=== PATIENT | female | born 1960 | race African-American/Black ===

== ENCOUNTER 2019-11-28 11:30 | Outpatient (CLI) | payer BC, SELFPAY ==
--- NOTE | ~2019-11-28 | US_ITS ---
US venous doppler [facility] DATE: 11/28/2019 12:22 INDICATION: Bilateral calf pain and lower extremity swelling TECHNIQUE: Real-time and color flow imaging and Doppler analysis of the lower extremity veins COMPARISON: None FINDINGS: The greater saphenous veins are patent. There is spontaneous and phasic flow and normal aug mentation and color flow signal and normal compression of the deep veins of both lower extremities. IMPRESSION: No evidence of deep venous thrombosis of the lower extremities Reviewed, dictated and finalized at Location A. Reviewed, dictated and finalized at location B.
== END 2019-11-28 11:31 | disposition home or self-care (01) ==
PROVIDERS: PCP Family Medicine; Visit Provider Family Medicine
DX: M79.89 Other specified soft tissue disorders (principal); M79.662 Pain in left lower leg; M79.661 Pain in right lower leg
CPT/HCPCS: 93970

== ENCOUNTER 2020-02-12 17:15 | Outpatient (CLI) | payer BC, SELFPAY ==
--- NOTE | ~2020-02-12 | CT_ITS ---
EXAMINATION: CT pelvis w con DATE: 02/12/2020 17:50 INDICATION: Bilateral groin pain TECHNIQUE: Computed tomography (CT) of the pelvis was performed with 100 mL Omnipaque-350 intravenous contrast. The dose-length product was 736.58 mGy-cm. COMPARISON: CT abdomen and pelvis dated 04/12/2009 FINDINGS: There is moderate colonic diverticulosis along the sigmoid colon without adjacent inflammatory change to suggest diverticulitis. Visualized portion of the small bowel are normal. Fibroid uterus. Bladder and bilateral adnexa are unremarkable. Small amount of fluid in the right side of the vaginal vault. Small fat-containing umbilical hernia. No inguinal or lower abdominal/pelvic ventral hernias. No pat hologically enlarged pelvic or inguinal lymphadenopathy. Severe bilateral facet osteoarthritis at L4- L5 and L5-S1. Mild bilateral hip and sacroiliac osteoarthritis. IMPRESSION: 1. No inguinal hernias or acute intrapelvic process. 2. Sigmoid diverticulosis. Reviewed, dictated and finalized at location A.
[2020-02-12 17:51] LABS: Estimated Glomerular Filt Rate > 60
== END 2020-02-12 17:16 | disposition home or self-care (01) ==
PROVIDERS: PCP Family Medicine; Visit Provider Physician Assistant
DX: K57.30 Diverticulosis of large intestine without perforation or abscess without bleeding (principal)
CPT/HCPCS: 36415; 72193; Q9967

== ENCOUNTER 2020-02-13 11:23 | Outpatient (CLI) | payer BC, SELFPAY ==
[2020-02-13 11:58] LABS: Basophils Percent Auto 0.3 % (0.2-1.2); Eosinophils Absolute Auto 0.4 K/mm3 (0-0.3); Eosinophils Percent Auto 5.9 % (0-4.4); Hematocrit 36.1 % (37.0-47.0); Hemoglobin 12.5 g/dL (12.0-15.0); Immature Granulocyte Absolute 0.02 K/mm3 (0.00-0.031); Immature Granulocyte Percent A 0.3 % (0-0.5); Lymphocytes Absolute Auto 1.58 K/mm3 (0.9-3.2); Lymphocytes Percent Auto 26.7 % (18.3-44.2); Mean Corpuscular HGB Conc 34.6 g/dl (32-36); Mean Corpuscular Hemoglobin 25.5 pg (26-34); Mean Corpuscular Volume 73.7 fl (80-100); Mean Platelet Volume 10.6 fl (7.4-10.4); Monocytes Absolute Auto 0.4 K/mm3 (0.1-0.6); Monocytes Percent Auto 6.9 % (2.6-8.5); Neutrophils Absolute Auto 3.5 K/mm3 (1.3-6.7); Neutrophils Percent Auto 59.9 % (45.5-73.1); Platelet Count Result 393 k/mm3 (150-375); Red Cell Distribution Width 14.7 % (11.5-14.5); White Blood Count 5.9 K/mm3 (4.5-10.0)
[2020-02-13 12:10] LABS: Alanine Aminotransferase 17 U/L (4-35); Albumin Level 4.2 g/dL (3.5-5.1); Alkaline Phosphatase 94 U/L (38-126); Aspartate Amino Transferase 22 U/L (14-36); Bilirubin,Total 1.2 mg/dL (0.2-1.3); Blood Urea Nitrogen 9 mg/dL (7-17); Calcium 8.9 mg/dL (8.4-10.2); Carbon Dioxide 30 mmol/L (22-30); Chloride 101 mmol/L (98-107); Creatine Kinase 65 U/L (30-135); Estimated Glomerular Filt Rate > 60; Glucose 88 mg/dL (65-105); Potassium 3.7 mmol/L (3.4-5.0); Sodium 137 mmol/L (137-145)
== END 2020-02-13 11:24 | disposition home or self-care (01) ==
PROVIDERS: PCP Family Medicine; Visit Provider Physician Assistant
DX: M79.10 Myalgia, unspecified site (principal); R10.2 Pelvic and perineal pain
CPT/HCPCS: 36415; 80053; 82550; 85025

== ENCOUNTER 2021-06-09 14:19 | Outpatient (CLI) | payer BC, SELFPAY ==
--- NOTE | ~2021-06-09 | MMUS_ITS ---
EXAMINATION: MM diagnostic jill BI w jaja, US breast LT limited HISTORY: Palpable left breast lump TECHNIQUE: Additional 3-D tomosynthesis images of the breasts were performed and synthetic 2-D images were generated. CAD analysis was submitted and interpreted. High resolution Limited left breast ultr asound was performed. COMPARISON: Comparison to multiple prior studies sequentially, with oldest reviewed study dated 02/18. BREAST PARENCHYMAL COMPOSITION: Breast composed of scattered areas of fibroglandular density. FINDINGS: MAMMOGRAPHIC FINDINGS: There is a new complex appearing mass with irregular margins in the upper outer quadrant of the left breast. There is an adjacent mass posterior to the dominant mass adjacent to the chest wall. There ar e new enlarged left axillary lymph nodes. The largest measurement measures approximately 3.5 cm and c ontains internal punctate calcifications. ULTRASOUND: Limited left breast ultrasound: At 2:00 in the area of palpable concern, 3 cm from the nipple there i s an irregular shaped hypoechoic mass within urination, mixed posterior attenuation measuring 2.7 x 2 .7 x 2.6 cm. There is internal vascularity. In the right axilla there is an irregular shaped hypoecho ic mass measuring 9 x 6 x 6 mm with mixed posterior attenuation and internal vascularity. At 12:00, 2 cm from the nipple, there is a 1.8 cm cyst. IMPRESSION: 1. Multiple left breast masses, largest dominant mass with some irregular spiculated margins, at 2:00 , 3 cm from the nipple measuring 2.7 cm. 2. Ultrasound-guided left breast biopsies recommended. BI-RADS category 5, highly suggestive of malignancy. Reviewed, dictated and finalized at location A. IMPRESSION: 1. Multiple left breast masses, largest dominant mass with some irregular spicu lated margins, at 2:00, 3 cm from the nipple measuring 2.7 cm. 2. Ultrasound-guided left breast biopsies recommended. BI-RADS category 5, highly suggestive of malignancy.
== END 2021-06-09 14:20 | disposition home or self-care (01) ==
PROVIDERS: PCP Family Medicine; Referring Provider Nurse Practitioner Family; Visit Provider Family Medicine
DX: N63.21 Unspecified lump in the left breast, upper outer quadrant (principal)
CPT/HCPCS: 76642; 77062; 77066; G0279

== ENCOUNTER 2021-06-13 13:02 | Outpatient (CLI) | payer BC, SELFPAY ==
--- NOTE | ~2021-06-13 | MMUS_ITS ---
US breast biopsy LT w image, MM post biopsy invasive LT EXAMINATION: US GUIDED NEEDLE BIOPSY WITH VAC UUM ASSISTANCE DATE: 06/13/2021 15:00 CDT INDICATION: Left breast mass seen at 2:00, 3 cm from the nipple Ultrasound-guided core biopsy is req uested to evaluate for malignancy. TECHNIQUE AND FINDINGS: The risks and potential benefits of the procedure were discussed with the patient, and written inform ed consent was obtained. After sterile preparation of the left breast, 1% lidocaine was utilized for local anesthesia. 1% lidocaine with epinephrine was used for deep anesthesia. A 10G vacuum-assisted biopsy gun needle was advanced through to the outer edge of the region of inter est from a superior approach utilizing sonographic guidance. A total of 5 tissue core samples were o btained through the lesion. An Inrad tissue marker clip was then placed at the biopsy site. Hemostas is was achieved. The patient tolerated procedure well and there was no evidence of immediate complication. The patien t was given verbal instructions partly is from the department. Left breast mammograms to document ti ssue marker clip placement. The tissue samples were submitted to surgical pathology for histologic an alysis. IMPRESSION: 1. Successful ultrasound-guided vacuum-assisted biopsy of left breast mass with tissue marker placem ent. Please refer to pathology report for histologic analysis. Patient experienced bleeding at the ti me of the biopsy. Additional mass posterior to the dominant mass was not biopsied at this time due to bleeding. Reviewed, dictated and finalized at location A. IMPRESSION: 1. Successful ultrasound-guided vacuum-assisted biopsy of left breast mass wit h tissue marker placement. Please refer to pathology report for histologic anal ysis. Patient experienced bleeding at the time of the biopsy. Additional mass p osterior to the dominant mass was not biopsied at this time due to bleeding.
== END 2021-06-13 13:03 | disposition home or self-care (01) ==
LOC: ANHIMG 13:04
PROVIDERS: PCP Family Medicine; Visit Provider Nurse Practitioner Family
DX: N63.20 Unspecified lump in the left breast, unspecified quadrant (principal); C50.412 Malignant neoplasm of upper-outer quadrant of left female breast
CPT/HCPCS: 19083; 88305; 88342; 88360; A4648

== ENCOUNTER 2021-07-22 12:58 | Outpatient (CLI) | payer BC, SELFPAY ==
--- NOTE | 2021-07-22 | ECHO_ITS ---
Patient Info Name: Lis Whitlock Age: 60 years : 1960 Gender: Female Ht: 63 in Wt: 203 lbs BSA: 2.07 m2 HR: 89 bpm BP: 151 / 81 mmHg Heart Rhythm: Sinus Rhythm Exam Date: 07/22/2021 1:59 PM Exam Location: [facility] Pulmonary Patient Status: Outpatient Admit Date: 07/22/2021 Staff Ordering Physician: Vernon Spencer MD Ophthalmic Technician Apprentice: Shala Borja RDCS Attending Provider: Vernon Spencer MD Referring Physician: Johanna BANKS; Exam Type: CA echo doppler color flow Study Info Indications - MALIGNANT NEOPLASM OF LEFT FEMALE BREAST Complete two-dimensional, color flow and Doppler transthoracic echocardiogram is performed. Summary 1. Complete two-dimensional, color flow and Doppler transthoracic echocardiogram is performed. 2. Left ventricular chamber dimension is normal. 3. Left ventricular systolic function is normal, estimated at 65-70%. 4. There is mildly increased left ventricular wall thickness. 5. The left ventricular diastolic function is grade I diastolic dysfunction. 6. E/e' 13 is mildly elevated. 7. Left atrial chamber dimension is mildly enlarged. 8. There is trace mitral valve regurgitation. 9. There is trace tricuspid valve regurgitation. 10. No pulmonary hypertension, estimated pulmonary arterial systolic pressure is 32 mmHg. 11. There is trace pulmonic regurgitation. Left Ventricle E/e' 13 is mildly elevated. Left ventricular chamber dimension is normal. Left ventricular systolic function is normal, estimated at 65-70%. There is mildly increased left ventricular wall thickness. The left ventricular diastolic function is grade I diastolic dysfunction. Right Ventricle Right ventricular systolic function is normal and with normal TAPSE 3.1 cm. Right ventricular chamber dimension is normal. Left Atria Left atrial chamber dimension is mildly enlarged. Right Atria Right atrial chamber dimension is normal. Aortic Valve The aortic valve is trileaflet. There is no aortic valve stenosis. There is no aortic valve regurgitation. Pulmonic Valve There is trace pulmonic regurgitation. Mitral Valve There is no mitral valve stenosis. There is trace mitral valve regurgitation. Tricuspid Valve There is trace tricuspid valve regurgitation. No pulmonary hypertension, estimated pulmonary arterial systolic pressure is 32 mmHg. Pericardium/Pleural There is no pericardial effusion. Inferior Vena Cava Normal inferior vena cava with >50% collapse upon inspiration consistent with normal right atrial pressure, 5 mmHg. Aorta The aortic root size at the sinus of Valsalva is normal. Left Ventricular Outflow Tract Name Value Normal LVOT 2D LVOT Diameter 2.0 cm LVOT Doppler LVOT Peak Gradient 7 mmHg LVOT Mean Gradient 4 mmHg LVOT VTI 32 cm LVOT VTI/AV VTI Ratio 0.7 LVOT Stroke Volume 98 ml LVOT CO 7.0 l/min LVOT CI 3.4 l/min/m2 Pulmonic Valve --
--- NOTE | ~2021-07-22 | CT_ITS ---
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 The dose-length product was 853.17 mGy-cm. Automated exposure control and iterative reconstruction technique were employed. COMPARISON: CT pelvis dated 02/12/2020 and diagnostic mammogram and left breast ultrasound dated 06/09 FINDINGS: CHEST CT: There are at least 10 left breast masses, largest measuring 3.2 cm transversely, image 41. There is a 2.3 cm mass involving the left pectoralis muscle, image 36. There are multiple mildly prominent left axillary lymph nodes. There are right axillary lymph nodes as well, most of which retain normal fatt y hilum. No significant pleural or pericardial effusion. Heart size is upper normal. There is residua l thymic tissue in the anterior mediastinum. No mediastinal or hilar lymphadenopathy. Small hiatal he rnia. There is a calcified granuloma in the right upper lobe. No endobronchial lesions. No suspicious pulmonary nodules or masses. No focal lytic or blastic lesions are identified. Mild thoracic spondyl osis. ABDOMEN/PELVIS CT: Status post cholecystectomy. The liver, spleen, adrenal glands and kidneys are unremarkable. There is a small 7 mm fat-containing mass of the pancreatic head, most likely benign. Small hiatal hernia. No nobstructive bowel gas pattern. Colonic diverticulosis without evidence for diverticulitis. Mild levo scoliosis of the lumbar spine. No significant vascular abnormality. IMPRESSION: 1. Multiple left breast masses, largest dominant mass measuring up to 3.2 cm, consistent with known m alignancy. Multiple additional masses are compatible with multicentric malignancy with possible metas tatic disease to the left axilla. One of the masses involves the left pectoralis muscle, consistent w ith chest wall invasion. Consider correlation with pet/CT scan. Reviewed, dictated and finalized at location A. NG MACHINE OPERATOR PRODUCTION IMPRESSION: 1. Multiple left breast masses, largest dominant mass measuring up to 3.2 cm, c onsistent with known malignancy. Multiple additional masses are compatible with multicentric malignancy with possible metastatic disease to the left axilla. O ne of the masses involves the left pectoralis muscle, consistent with chest wal l invasion. Consider correlation with pet/CT scan.
[2021-07-22 13:32] LABS: Estimated Glomerular Filt Rate > 60
== END 2021-07-22 12:59 | disposition home or self-care (01) ==
LOC: ANHCARD 13:11
PROVIDERS: PCP Family Medicine; Visit Provider Internal Medicine Hematology & Oncology
DX: C50.412 Malignant neoplasm of upper-outer quadrant of left female breast (principal)
CPT/HCPCS: 71260; 74177; 93306; Q9967

== ENCOUNTER 2022-10-07 15:36 | Outpatient (CLI) | payer OTHER, SELFPAY ==
--- NOTE | ~2022-10-07 | XR_ITS ---
2 views of the right clavicle CLINICAL HISTORY: Pain FINDINGS: No fracture or dislocation seen. Osseous alignment is anatomic. Visualized joint spaces are preserved. Soft tissues are unremarkable. IMPRESSION: Unremarkable exam. Reviewed, dictated and finalized at location M. SIFIED AD TAKER IMPRESSION: Unremarkable exam.
--- NOTE | ~2022-10-07 | XR_ITS ---
Right Shoulder Technique: AP and axillary views were obtained. Clinical History: Pain Findings: No fracture or dislocation is seen. Osseous alignment is anatomic. The glenohumeral and acr omioclavicular joint spaces are preserved. Soft tissues are unremarkable. Impression: Unremarkable right shoulder radiographs. Reviewed, dictated and finalized at [facility]. OLOGIC ENGINEER Impression: Unremarkable right shoulder radiographs.
--- NOTE | ~2022-10-07 | XR_ITS ---
Cervical Spine: AP, lateral, open-mouth views Clinical History: Pain Findings: The normal lordotic curve is maintained. No fracture or subluxation seen. There is mild deg enerative disc narrowing at C3-C4, C4-C5, C5-C6, and C6-C7. Pre-vertebral soft tissues are unremarkab le. Impression: Mild degenerative disc changes throughout most the cervical spine, as detailed above. Reviewed, dictated and finalized at location . TEACHER Impression: Mild degenerative disc changes throughout most the cervical spine, as detailed above.
== END 2022-10-07 15:37 ==
PROVIDERS: PCP Family Medicine; Visit Provider Physician Assistant
DX: M25.511 Pain in right shoulder (principal); M89.8X1 Other specified disorders of bone, shoulder; M50.30 Other cervical disc degeneration, unspecified cervical region
CPT/HCPCS: 72040; 73000; 73030

== ENCOUNTER 2022-12-04 15:30 | Outpatient (RCR) | payer OTHER, SELFPAY ==
[2022-11-04 13:40] VITALS: BP_SYST 110
--- NOTE | 2022-11-04 14:37 | PTOPEVAL1 ---
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; have lymphedema in L arm--had treatment for it, with home pump and compression sleeve; R shoulder pain is like the pain had in L arm; Sleeves of her short sleeve work shirt are tighter than previous and stomach is bigger and bloated feeling; weight has been stable over the past year ~ 209#; is not doing any exercises for her arms; Reported Pain Level Pain Score Self Report Additional Pain Score Comments pain range 0-9/10 in R shoulder--sharp, under arm pit and lateral breast areas; increase pain with lifting arm overhead, lean forward to pick something up off floor; decrease pain with rest, over the counter meds; have not used any heat or ice--educated on use of ice over shoulder due to lymphedema and can use heat over neck; Assessment PT Clinical Summary Lis has the diagnosis of R shoulder pain, gradual onset of pain, without injury to R arm. She is active, working 9-12 hours/day. About 1 year ago, she had B mastectomy with B implants due to L breast cancer. She had lymphedema treatment for her L arm, has a home pump and compression sleeve. Also reports her upper arms are more swollen with her short sleeve work shirt tighter and swelling/bloating over stomach. She is not doing any arm exercises. With the evaluation, she has decreased R shoulder flexion and abduction ROM and strength, with pain increase; with palpation, there are tissue changes over medial humerus and lateral trunk-- indicative of lymphedema; her posture is rounded shoulder positioning; Discussed with her that her R shoulder involvement may be due to lymphedema. She stated the R shoulder feels like
--- NOTE | 2022-11-24 12:28 | PCPTNOTE ---
pt cancelled her appt this morning and the rest of the week due to increased swelling/pain in bilateral feet.
--- NOTE | 2022-12-04 15:47 | PTOPDC ---
Assessment and note entered by Octavia Young, PT Evaluation Information Assessment Status Discharge Diagnosis R shoulder pain Onset August 2022 Subjective Information Lis reports: shoulder is getting better--can raise it more and does not pull as much; at work, can the cups; have been doing the shoulder exercises at home; Reported Pain Level Pain Score Self Report Additional Pain Score Comments pain range of past week 0-2/10; sore, tight, pulls decrease pain with rest; is using her home compression pump Assessment PT Clinical Summary Lis has received 5 PT sessions. Compared to the initial evaluation: pain rating at the worst improved from 9 to 2/10; active ROM of R shoulder flexion is 130' and abduction is 120' , with increased strength, she able to use 2# hand weight for exercises, through full ROM; she has been educated on HEP and posture correction with standing, sleeping and work tasks. Discussed with pt to continue to monitor her lymphedema over her arm and breast. And notify her dr if she has any issues, and request treatment by lymphedema therapist. The goals were achieved except shoulder abduction ROM. Discharge PT services. Plan of Care PT Services Indicated No
== END 2023-01-18 08:48 | disposition home or self-care (01) ==
LOC: ANHPT 15:30
PROVIDERS: PCP Family Medicine; Visit Provider Physician Assistant
DX: M79.601 Pain in right arm (principal)
CPT/HCPCS: 97110; 97140; 97161

== ENCOUNTER 2023-06-22 16:01 | Outpatient (CLI) | payer OTHER, SELFPAY ==
[2023-06-22 16:22] LABS: Basophils Percent Auto 0.5 % (0.2-1.2); Eosinophils Absolute Auto 0.4 K/mm3 (0-0.3); Eosinophils Percent Auto 4.5 % (0-4.4); Hematocrit 37.1 % (37.0-47.0); Hemoglobin 12.7 g/dL (12.0-15.0); Immature Granulocyte Absolute 0.02 K/mm3 (0.00-0.031); Immature Granulocyte Percent A 0.2 % (0-0.5); Lymphocytes Absolute Auto 1.88 K/mm3 (0.9-3.2); Lymphocytes Percent Auto 22.9 % (18.3-44.2); Mean Corpuscular HGB Conc 34.2 g/dl (32-36); Mean Corpuscular Hemoglobin 25.8 pg (26-34); Mean Corpuscular Volume 75.3 fl (80-100); Mean Platelet Volume 10.6 fl (7.4-10.4); Monocytes Absolute Auto 0.5 K/mm3 (0.1-0.6); Monocytes Percent Auto 6.6 % (2.6-8.5); Neutrophils Absolute Auto 5.4 K/mm3 (1.3-6.7); Neutrophils Percent Auto 65.3 % (45.5-73.1); Platelet Count Result 365 k/mm3 (150-375); Red Blood Count 4.93 M/mm3 (4.2-5.4); Red Cell Distribution Width 14.8 % (11.5-14.5); White Blood Count 8.2 K/mm3 (4.5-10.0)
[2023-06-22 17:13] LABS: Alanine Aminotransferase 22 U/L (6-35); Albumin Level 4.5 g/dL (3.5-5.1); Alkaline Phosphatase 93 U/L (38-126); Anion Gap 8 mmol/L (8-16); Aspartate Amino Transferase 24 U/L (14-36); Bilirubin,Total 0.9 mg/dL (0.2-1.3); Blood Urea Nitrogen 17 mg/dL (7-17); Calcium 9.4 mg/dL (8.4-10.2); Carbon Dioxide 28 mmol/L (22-30); Chloride 106 mmol/L (98-107); Estimated Glomerular Filt Rate > 60; Glucose 105 mg/dL (65-110); Potassium 3.1 mmol/L (3.4-5.0); Sodium 142 mmol/L (137-145)
[2023-06-25 06:38] LABS: CA 15-3 16 U/mL (<32)
== END 2023-06-22 16:02 | disposition home or self-care (01) ==
LOC: ANHLAB 16:03
PROVIDERS: PCP Family Medicine; Visit Provider Internal Medicine Hematology & Oncology
DX: C50.412 Malignant neoplasm of upper-outer quadrant of left female breast (principal)
CPT/HCPCS: 36415; 80053; 85025; 86300

== ENCOUNTER 2023-10-04 09:42 | Outpatient (CLI) | payer OTHER, SELFPAY ==
--- NOTE | ~2023-10-04 | US_ITS ---
EXAMINATION: US venous doppler [facility] DATE: 10/04/2023 10:30 INDICATION: Lower limb swelling and pain TECHNIQUE: Grayscale ultrasound images without and with compression and Doppler ultrasound images of the bilateral lower extremity veins were obtained. COMPARISON: None. FINDINGS: The visualized portions of right common femoral vein, profunda (deep) femoral vein, femoral vein, pop liteal vein, posterior tibial veins, peroneal veins, gastrocnemius vein and greater saphenous vein ou tflow are patent. The visualized portions of left common femoral vein, profunda femoral vein, femoral vein, popliteal v ein, posterior tibial veins, peroneal veins, gastrocnemius vein and greater saphenous vein outflow ar e patent. IMPRESSION: 1. No deep venous thrombosis in either lower limb. Reviewed, dictated and finalized at location A. IC ADDRESS ANNOUNCER
== END 2023-10-04 09:43 | disposition home or self-care (01) ==
LOC: ANHIMG 09:45
PROVIDERS: PCP Family Medicine; Visit Provider Physician Assistant
DX: R60.0 Localized edema (principal); M79.661 Pain in right lower leg; M79.89 Other specified soft tissue disorders; R23.8 Other skin changes
CPT/HCPCS: 93970

== ENCOUNTER 2024-02-14 13:02 | Outpatient (CLI) | payer OTHER, SELFPAY ==
[2024-02-14 13:21] LABS: Basophils Percent Auto 0.4 % (0.2-1.2); Eosinophils Absolute Auto 0.3 K/mm3 (0-0.3); Eosinophils Percent Auto 3.9 % (0-4.4); Hematocrit 36.3 % (37.0-47.0); Hemoglobin 12.9 g/dL (12.0-15.0); Immature Granulocyte Absolute 0.02 K/mm3 (0.00-0.031); Immature Granulocyte Percent A 0.2 % (0-0.5); Mean Corpuscular HGB Conc 35.5 g/dl (32-36); Mean Corpuscular Hemoglobin 26.3 pg (26-34); Mean Corpuscular Volume 73.9 fl (80-100); Mean Platelet Volume 10.4 fl (7.4-10.4); Monocytes Absolute Auto 0.6 K/mm3 (0.1-0.6); Monocytes Percent Auto 7.4 % (2.6-8.5); Neutrophils Absolute Auto 5.8 K/mm3 (1.3-6.7); Neutrophils Percent Auto 67.1 % (45.5-73.1); Platelet Count Result 399 k/mm3 (150-375); Red Blood Count 4.91 M/mm3 (4.2-5.4); Red Cell Distribution Width 14.8 % (11.5-14.5); White Blood Count 8.6 K/mm3 (4.5-10.0)
[2024-02-14 15:24] LABS: Alanine Aminotransferase 17 U/L (6-35); Albumin Level 4.4 g/dL (3.5-5.1); Alkaline Phosphatase 92 U/L (38-126); Anion Gap 5 mmol/L (4-12); Aspartate Amino Transferase 23 U/L (14-36); Bilirubin,Total 0.8 mg/dL (0.2-1.3); Blood Urea Nitrogen 15 mg/dL (7-17); Calcium 9.6 mg/dL (8.4-10.2); Carbon Dioxide 28 mmol/L (22-30); Chloride 107 mmol/L (98-107); Estimated Glomerular Filt Rate > 60; Glucose 85 mg/dL (65-110); Potassium 3.4 mmol/L (3.4-5.0); Sodium 140 mmol/L (137-145)
[2024-02-16 04:23] LABS: CA 15-3 18 U/mL (<32)
== END 2024-02-14 13:03 | disposition home or self-care (01) ==
PROVIDERS: PCP Family Medicine; Visit Provider Internal Medicine Hematology & Oncology
DX: C50.412 Malignant neoplasm of upper-outer quadrant of left female breast (principal)
CPT/HCPCS: 36415; 80053; 85025; 86300

== ENCOUNTER 2024-06-19 13:14 | Outpatient (CLI) | payer OTHER, SELFPAY ==
[2024-06-19 13:27] LABS: Basophils Absolute Auto 0.1 K/mm3 (0.0-0.1); Basophils Percent Auto 0.5 % (0.2-1.2); Eosinophils Absolute Auto 0.3 K/mm3 (0-0.3); Eosinophils Percent Auto 3.3 % (0-4.4); Hematocrit 37.2 % (37.0-47.0); Hemoglobin 13.1 g/dL (12.0-15.0); Immature Granulocyte Absolute 0.04 K/mm3 (0.00-0.031); Immature Granulocyte Percent A 0.4 % (0-0.5); Mean Corpuscular HGB Conc 35.2 g/dl (32-36); Mean Corpuscular Hemoglobin 25.7 pg (26-34); Mean Corpuscular Volume 72.9 fl (80-100); Mean Platelet Volume 10.5 fl (7.4-10.4); Monocytes Absolute Auto 0.5 K/mm3 (0.1-0.6); Monocytes Percent Auto 5.5 % (2.6-8.5); Neutrophils Absolute Auto 6.4 K/mm3 (1.3-6.7); Neutrophils Percent Auto 67.3 % (45.5-73.1); Platelet Count Result 348 k/mm3 (150-375); Red Cell Distribution Width 15.1 % (11.5-14.5); White Blood Count 9.6 K/mm3 (4.5-10.0)
[2024-06-19 16:34] LABS: Alanine Aminotransferase 24 U/L (6-35); Albumin Level 4.6 g/dL (3.5-5.1); Alkaline Phosphatase 110 U/L (38-126); Anion Gap 9 mmol/L (4-12); Aspartate Amino Transferase 23 U/L (14-36); Bilirubin,Total 0.8 mg/dL (0.2-1.3); Blood Urea Nitrogen 19 mg/dL (7-17); Calcium 9.7 mg/dL (8.4-10.2); Carbon Dioxide 27 mmol/L (22-30); Chloride 101 mmol/L (98-107); Estimated Glomerular Filt Rate > 60; Glucose 76 mg/dL (65-110); Potassium 3.4 mmol/L (3.4-5.0); Sodium 137 mmol/L (137-145)
[2024-06-20 11:44] LABS: CA 15-3 19 U/mL (<32)
== END 2024-06-19 13:15 | disposition home or self-care (01) ==
PROVIDERS: PCP Family Medicine; Visit Provider Internal Medicine Hematology & Oncology
DX: C50.412 Malignant neoplasm of upper-outer quadrant of left female breast (principal)
CPT/HCPCS: 36415; 80053; 85025; 86300

== ENCOUNTER 2025-05-08 14:55 | Outpatient (CLI) | payer MEDICARE, SELFPAY ==
[2025-05-08 15:09] LABS: Hematocrit 37.5 % (37.0-47.0); Hemoglobin 13.2 g/dL (12.0-15.0); Immature Granulocyte Percent A 0.2 % (0-0.5); Lymphocytes Absolute Auto 2.31 K/mm3 (0.9-3.2); Mean Corpuscular HGB Conc 35.2 g/dl (32-36); Mean Corpuscular Hemoglobin 26.1 pg (26-34); Mean Corpuscular Volume 74.1 fl (80-100); Nucleated Red Blood Cells Absolute Auto 0.000 K/mm3 (0.0-0.012); Nucleated Red Blood Cells Perc 0.0 % (0.0-0.2); Platelet Count Result 367 k/mm3 (150-375); Red Blood Count 5.06 M/mm3 (4.2-5.4); White Blood Count 8.3 K/mm3 (4.5-10.0)
--- OUTSIDE RECORDS SUMMARY | 2025-05-08 16:21 | XMS_ITS | Clinical Summary ---
Author Organization [facility] Care Team Providers Care Drilling Machine Operator Name Role Phone Unavailable Primary Care Provider Unavailabl e Social History Tobacco Use Types Packs/Day Years Used Date Smoking Tobacco: Never Assessed Comments Unknown Sex and Gender Information Value Date Recorded Sex Assigned at Not on file Legal Sex Female 3:35 PM CDT Gender Identity Not on file Sexual Orientation Not on file Plan of Treatment Health Maintenance Due Date Last Done Comments Hepatitis C Virus (HCV) Screening 1960 Pap Smear 11/22/1980 Cervical Cancer Screening (CCS) 11/22/1989 HPV/Cotest 11/22/1989 Cologuard 11/22/2004 Colonoscopy 11/22/2004 Colorectal Cancer Screening 11/22/2004 Immunochemical Fecal Occult Blood 11/22/2004 Pneumococcal Immunization (5 0+ years) (1 of 1 - PCV) 11/22/2009 SARS-COV-2 Immunization (1 - 2023- season) 2024 Influenza Immunization (#1) 2025 Respiratory Syncytial Virus (RSV) Immunization (Adult) (1 - 1-dose 75+ series) 11/22/2034 DTaP/Tdap/Td Immunization Discontinued 01/19/2019 TdaP Immunization Completed 01/19/2019 Zoster Immunization Completed 09/08/2019, 03/12/2019 Hepatitis B Immunization Aged Out No longer eligible based on patient's age to complete this topic Human Papillomavirus (HPV) Immunization Aged Out No longer eligible based on patient's age to complete this topic Meningococcal Immunization (ACWY) Aged Out No longer eligible based on patient's age to complete this topic Rotavirus Immunization Aged Out No lo nger eligible based on patient's age to complete this topic
--- OUTSIDE RECORDS SUMMARY | 2025-05-08 16:21 | XMS_ITS | Clinical Summary ---
Author Organization [facility] Address [address] [place] [address] Care Team Providers Care Beamer Helper Name Role Phone Peter Harvey MD Primary Care Provider [phone] Source Comments [facility],non-owned Affiliates and Associated Physician Practices is amultiple site organization consisting of ambulatory clinics and hospital sitesin [place] and [place]. This disclosure is being madepursuant to the Care Everywhere program and may not contain all information available regarding this patient. 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 Gender Identity Not on file Sexual Orientation Not on file Plan of Treatment Health Maintenance Due Date Last Done Comments BONE DENSITY TESTING 1960 COLOGUARD (AGES 45-75) - COL ON CA SCREENING 1960 COLON MONITORING 1960 COLONOSCOPY - COLON CA SCREENING 1960 CT COLONOGRAPHY - COLON CA SCREENING 1960 Colorectal Cancer Screening 1960 FIT - COLON CA SCREENING 1960 FLEX SIG - COLON CA SCREENING 1960 LIPID TESTING 1960 MAMMOGRAM 1960 HIV SCREENING 11/22/1974 HEPATITIS C SCREENING 11/18/1977 DTAP/TDAP/TD VACCINES (1 - Tdap) 11/22/1978 PNEUMOCOCCAL VACCINE 50+ (1 of 1 - PCV) 11/22/2009 ZOSTER VACCINE (1 of 2) 11/22/2009 DEPRESSION SCREENING 08/30/2024 COVID-19 VACCINE (2023-2 5 season) 2025 INFLUENZA VACCINE (#1) 2025 Respiratory Syncytial Virus (RSV) Vaccine Pt: or over 60 yrs (1 - 1-dose 75+ series) 11/22/2034 HEPATITIS B VACCINE Aged Out No longe r eligible based on patient's age to complete this topic HIB VACCINE Aged Out No longer eligi ble based on patient's age to complete this topic HPV VACCINE Aged Out No longer eligi ble based on patient's age to complete this topic MENINGOCOCCAL (Group B) VACC INE SHARED DECISION-MAKING Aged Out No longer eligibl e based on patient's age to complete this topic MENINGOCOCCAL GROUPS A/C/Y/W VACCINE Aged Out No longer eligible b ased on patient's age to complete this topic Insurance ANTHEM ANTHEM Care Teams Beamer Helper Relationship Specialty Start Date End Date Peter Harvey MD [address] [place] [address] PCP - General Family Medicine 12/19/14
--- OUTSIDE RECORDS SUMMARY | 2025-05-08 16:21 | XMS_ITS | Encounter Summary ---
Author Organization [facility] Address 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 Gender Identity Not on file Sexual Orientation Not on file documented as of this encounter Plan of Treatment Upcoming Encounters Date Type Department Care Team (Late Contact Info) Description 05/14/2025 11:45 AM CDT Office Visit [facility] - [facility] [facility] [address] [place] [address] Vernon Spencer MD [address] [facility] [place] [address] 05/25/2025 1:45 PM CDT Office Visit [facility] Breast Surgery [address] [facility] [address] [place] [address] Betsey Watkins, PHYSICIST [place] [place] [address] [place] [address] documented as of this encounter Visit Diagnoses Diagnosis Syncope and collapse- Primary documented in this encounter Care Teams Physical Therapist Clinic Director Relationship Specialty Start Date End Date Peter Harvey MD [address] [facility] [address] [place] [address] PCP - General Family Practice 06/23/21 documented as of this encounter
--- OUTSIDE RECORDS SUMMARY | 2025-05-08 16:21 | XMS_ITS | Clinical Summary ---
Author Organization [facility] Administrative Offices Address [address] [place] [id number] Care Team Providers Care Digital Production Manager Name Role Phone Peter Harvey MD Primary Care Provider [phone] Allergies Active Allergy Reactions Criticality Noted Date Comments Propoxyphene N-Acetaminophen Nausea and Vomiting Low 07/21/2021 Medications hydroCHLOROthia zide 25 mg tablet Take 25 mg by mouth daily. Active OTHER Sleep aid Active ibuprofen (MOTRIN) 400 mg tablet Take 1 Tablet (400 mg) by mouth every 6 hours as needed for pain secondary to inflammation 60 Tablet 1 12/13/2021 11:39 AM CDT 2 Active iron,carb/vit C/vit B12/folic (IRON 100 PLUS ORAL) Take by mouth. Activ e cyanocobalamin (VITAMIN B-12) 100 mcg tablet Take 100 mcg by mouth daily. Active omeprazole (PriLOSEC) 40 mg Capsule, Delayed Release(E.C.) Take 40 mg by mouth daily. 2 Active Contrave 8-90 mg Tablet Sustained Release TAKE 1 TABLET BY MOUTH ONCE DAILY FOR 7 DAYS, THEN 1 TAB TWICE DAILY FOR 7 DAYS, THEN 2 TABS IN THE MORNING AND 1 TAB IN THE EVENING FOR 7 DAYS, THEN TAKE 2 TABS TWICE DAILY THEREAFTER 4 Active verapamiL (VERELAN) 240 mg Sustained Release 24 hour capsule 4 Active pregabalin (LYRICA) 150 mg Capsule Take 1 Capsule (150 mg) by mouth 2 times daily. 60 Capsule 5 Active Active Problems Patient Care Coordination No te Formatting of this note migh t be different from the original. Primary Care: Peter Harvey MD Referring Provider: No referring provider defined for this encounter. Other: Dr. Debo Barker MD Problem Noted Date Diagnosed Date History of left breast cancer 05/04/2023 S/P bilateral mastectomy 12/25/2021 Breast cancer metastasized to axillary lymph nod e, left 07/20/2021 Malignant neoplasm of overla pping sites of left breast in female, estrogen receptor negative 07/17/2021 Benign hypertension 06/23/2021 Diverticulitis 06/23/2021 Malignant neoplasm of upper- outer quadrant of left female breast 06/23/2021 Encounters Date Type Department Care Team Description 05/01/2025 External Device Data [facility] Provider, Abstract 04/10/2025 External Device Data [facility] Provider, Abstract 04/02/2025 [facility] Oncology and Hematology [address] [address] Vernon Spencer MD 03/14/2025 External Device Data [facility] Provider, Abstract 03/14/2025 External Device Data [facility] Provider, Abstract 02/14/2025 External Device Data [facility] Provider, Abstract from Last 3 Months Family History Medical History Relation Name Comments Breast Cancer Maternal Grandmother Cancer Maternal Grandmother Relation Name Status Comments Brother 1 Alive Brother 2 Alive Brother 3 Alive Father Alive Maternal Grandmother Mother Sister 1 Alive Sister 2 Alive Sister 3 Alive Sister 4 Alive Social History Tobacco Use Types Packs/Day Years Used Date Smoking Tobacco: Never Smokeless Tobacco: Never Tobacco Cessation:Counseling Given: Not Answered Alcohol Use Standard Drinks/Week Comments Never 0 (1 standard drink = 0.6 oz pur e alcohol) Feeling Safe Answer Date Recorded Within the last year, have y ou been afraid of your partner or ex-partner? No 05/09/2024 Within the last year, have y ou been humiliated or emotionally abused in other ways by your partner or ex-partner? No Within the last year, have y ou been kicked, hit, slapped, or otherwise physically hurt by your partner or ex-partner? No 05/09/2024 Within the last year, have y ou been raped or forced to have any kind of sexual activity by your partner or ex-partner? No 05/09/2024 Comments No Sex and Gender Information Value Date Recorded Sex Assigned at Not on file Legal Sex Female 2:52 AM PRODUCT MARKETING CONSULTANT Gender Identity Not on file Sexual Orientation Not on file Last Filed Vital Signs Vital Sign Reading Time Taken Comments Blood Pressure 170/96 10/30/2024 1:54 PM PRODUCT MARKETING CONSULTANT Pulse 79 10/30/2024 1:51 PM PRODUCT MARKETING CONSULTANT Temperature 36.2 C (97.2 F) 10/30/2024 1:51 PM PRODUCT MARKETING CONSULTANT Respiratory Rate 15 10/30/2024 1:51 PM PRODUCT MARKETING CONSULTANT Oxygen Saturation 96% 10/30/2024 1:51 PM PRODUCT MARKETING CONSULTANT Inhaled Oxygen Concentration - - Weight 97.8 kg (215 lb 9.6 oz) 10/30/2024 1:51 P M PRODUCT MARKETING CONSULTANT Height 160 cm (5' 3) 05/09/2024 1:04 PM CDT Body Mass Index 38.19 05/09/2024 1:04 PM CDT Plan of Treatment Upcoming Encounters Date Type Department Care Team (Late st Contact Info) Description 05/14/2025 11:45 AM CDT Office Visit [facility] Oncology and H[place] [address] [place] [address] [address] [place] [address] Vernon Spencer MD [address] [facility] [address] [place] [address] 05/25/2025 1:45 PM CDT Office Visit [facility] [address] [facility] [address] [place] [address] Betsey Watkins FNP [address] [place] [address] Health Maintenance Due Date Last Done Comments Pre-Diabetes and Diabetes Screening 1960 DTAP/TDAP/TD VACCINES (1 - Tdap) 11/22/1978 PNEUMOCOCCAL VACCINE 50+ YEARS (1 of 2 - PCV) 11/22/18 78 ZOSTER VACCINE (1 of 2) 11/22/1978 COLORECTAL SCREENING 11/22/2004 Colorectal Cancer Screening 11/22/2004 FIT-DNA Q 3 years 11/22/2004 FIT/FOBT Q 1 year 11/22/2004 Flex Sig/CT Colonography Q 5 years 11/22/2004 Preventative Visit- Commercial 08/30/2024 OSTEOPOROSIS SCREENING 11/22/2024 INFLUENZA VACCINE (#1) 2025 RSV VACCINE (60+ or ) (1 - 1-dose 75+ series) 11/22/2034 Medical Devices Implanted Type Area Auto Parts Counter Person Device Identifier Shelf Expiration Date Model / Serial / Lot Clip Ligating Horizon Med Ti [id number] - Csc - [id number] Implanted:Qty: 2 on 12/12/2021 by Debo Barker MD at [facility] Clip Left: Breast TELEFLEX- WECK CLOSURE SYS 03/02/2026 [id number] / / [id number] Imp Breast Inspira Scx 400ml Scx-400 - [id number] Implanted:Qty: 1 on 03/13/2022 by Kevin Rabago MD at [facility] Mammary Right: Breast ALLERGAN- MEDICAL [id number] 04/16/2023 SCX-400 / [id number] / Imp Breast Inspira Scx 400ml Scx-400 - [id number] Implanted:Qty: 1 on 03/13/2022 by Kevin Rabago MD at [facility] Mammary Left: Breast [employer]ERGAN- MEDICAL [id number] 09/15/2025 SCX-400 / [id number] / Description:BOTH ALLERGAN BE AST IMPLANTS ON REQUISITION # [id number] Alloderm Matrix Tissue Thick [id number] - [id number] Implanted:Qty: 1 on 12/12/2021 by Debo Barker MD at [facility] Tissue Left: Breast ALLERGAN- MEDICAL [id number] 02/26/2022 [id number] / / [id number] Alloderm Matrix Tissue Thick [id number] - [id number] Implanted:Qty: 1 on 12/12/2021 by Debo Bakrer MD at [facility] Tissue Right: Breast ALLERGAN- MEDICAL [id number] 02/26/2022 [id number] / / [id number] Explanted Type Area Auto Parts Counter Person Device Identifier Shelf Expiration Date Model / Serial / Lot Tissue [employer] Teacher With Suture Tabs Implanted:Qty : 1 on 12/12/2021 by Debo Barker MD at [facility] Explanted:Qty : 1 on 03/13/2022 at [facility] Mammary Left: Breast ALLERGAN- MEDICAL [id number] 03/25/2026 133S-FX-12 T / [id number] / Description:Both Allergan Ex panders are processed on requisition, [id number]. Tissue [employer] Teacher With Suture Tabs Implanted:Qty : 1 on 12/12/2021 by Debo Barker MD at [facility] Explanted:Qty : 1 on 03/13/2022 at [facility] Mammary Right: Breast ALLERGAN- MEDICAL [id number] 09/09/2025 133S-FX-12 T / [id number] / Description:[facility] Clearvue 8fr Mri [id number] - [id number] Implanted:Qty : 1 on 07/28/2021 by Debo Barker MD at [facility] Explanted:Qty : 1 on 03/13/2022 by Kevin Rabago MD at [facility] Right: Chest CR [employer]ARD[employer] [id number] 09/29/2022 [id number] / / [id number] Insurance RX [facility] [employer] RX [employer] PLANS (INTERNAL) [facility] Plans AETNA CHOICE POS II AETNA CHOICE POS II [facility] INDIVIDUAL EXCHANGE [id number] Advance Directives For more information, please contact: [phone] * Full Code (Latest Code Status on File) Date Activated Date Inactivated Comments 03/13/2022 11:21 AM 03/13/2022 8:24 PM * Full Code Date Activated Date Inactivated Comments 12/12/2021 1:17 PM 12/13/2021 4:22 PM Care Teams Digital Production Manager Relationship Specialty Start Date End Date Peter Harvey MD [address] [address] PCP - General Family Practice 06/23/21
[2025-05-08 16:39] LABS: Alanine Aminotransferase 25 U/L (6-35); Albumin Level 4.1 g/dL (3.5-5.1); Alkaline Phosphatase 93 U/L (38-126); Anion Gap 6 mmol/L (4-12); Aspartate Amino Transferase 54 U/L (14-36); Bilirubin,Total 1.0 mg/dL (0.2-1.3); Blood Urea Nitrogen 9 mg/dL (7-17); Calcium 9.2 mg/dL (8.4-10.2); Carbon Dioxide 29 mmol/L (22-30); Chloride 104 mmol/L (98-107); Estimated Glomerular Filt Rate > 60; Glucose 96 mg/dL (65-110); Potassium 3.5 mmol/L (3.4-5.0); Sodium 139 mmol/L (137-145); Total Protein 7.8 g/dL (6.3-8.2)
== END 2025-05-08 14:56 | disposition home or self-care (01) ==
LOC: ANHLAB 14:57
PROVIDERS: PCP Family Medicine; Visit Provider Internal Medicine Hematology & Oncology
DX: C50.412 Malignant neoplasm of upper-outer quadrant of left female breast (principal)
CPT/HCPCS: 36415; 80053; 85025; 86300